=== PATIENT | male | born 1995 | race Caucasian/White ===

== ENCOUNTER 2016-07-11 16:59 | Emergency (ER) | payer OTHER ==
[2016-07-11 17:14] VITALS: TEMP 98.9
[2016-07-11] MEDS ORDERED: ASPIRIN 81 MG CHEW PO STA (17:56)
[2016-07-11 18:38] LABS: Basophils # (A) 0.1 k/uL (0-0.2); Basophils % (A) 1 %; CH 30.7; CHCM 33.7; Eosinophils # (A) 0.2 k/uL (0-0.7); Eosinophils % (A) 2 %; HCT 46.8 % (39.0-53.0); HDW 2.34; HGB 16.1 gm/dL (13.0-17.5); Luc # (Auto) 0.22; Luc % (Auto) 2; Lymphocytes # (A) 3.3 k/uL (1.0-4.8); Lymphocytes % (A) 31 %; MCH 31.4 pg (25.0-35.0); MCHC 34.4 g/dL (31.0-37.0); MCV 91.4 fL (80.0-100.0); Mean Platelet Volume 6.8; Monocytes # (A) 0.7 k/uL (0-1.0); Monocytes % (A) 7 %; Neutrophils % (A) 57 %; RBC 5.12 m/uL (4.30-5.90); RDW 12.9 % (11.5-15.5); WBC 10.5 k/uL (3.8-10.6); WBC (Perox) 11.32
--- NOTE | 2016-07-11 18:47 | XR ---
EXAMINATION TYPE: XR chest 2V DATE OF EXAM: 07/11/2016 6:36 PM COMPARISON: NONE HISTORY: Chest pain TECHNIQUE: Frontal and lateral views of the chest are obtained. FINDINGS: Heart and mediastinum are normal. Lungs are clear. Diaphragm is normal. Bony thorax and so ft tissues appear normal. There are chest leads. IMPRESSION: Normal chest
[2016-07-11 18:52] LABS: ALT 74 U/L (21-72); AST 47 U/L (17-59); Alkaline Phosphatase 97 U/L (38-126); Anion Gap 11 mmol/L; Blood Urea Nitrogen 13 mg/dL (9-20); Calcium 9.8 mg/dL (8.4-10.2); Carbon Dioxide 26 mmol/L (22-30); Chloride 105 mmol/L (98-107); Glucose 101 mg/dL (74-99); Magnesium 2.1 mg/dL (1.6-2.3); Non-African American GFR(MDRD) >60 (>60 ml/min/1.73 sqM); Potassium 4.5 mmol/L (3.5-5.1); Sodium 142 mmol/L (137-145); Total Bilirubin 0.6 mg/dL (0.2-1.3); Total Protein 7.8 g/dL (6.3-8.2)
--- NOTE | 2016-07-11 20:03 | ED ---
Chest Pain HPI - General Chief Complaint: Chest Pain Stated Complaint: Chest pain Time Seen by Provider: 07/11/16 17:52 Source: patient Mode of arrival: wheelchair Limitations: no limitations - History of Present Illness Initial Comments: Patient complains of chest pain. Pain is in the middle of the chest. He describes this pressure. Nothing makes the pain better or worse. The pain doesn't radiate anywhere. He was not doing when the pain began. He has no nausea, vomiting, diaphoresis. He has no belly or back pain. He has no weakness. He has no trouble walking. His pain has been there for many hours. There are no exacerbating or relieving factors. He has no exertional chest pain. He has no neck pain or stiffness. - Related Data Home Medications Medication Instructions Recorded Confirmed Dextroamphetamine/Amphetamine 20 mg PO BID 07/11/16 07/11/16 [Adderall] Previous Rx's Medication Instructions Recorded Ibuprofen [Motrin] 800 mg PO Q8HR PRN #30 tab 11/22/14 Allergies Allergy/AdvReac Type Severity Reaction Status Date / Time No Known Allergies Allergy Verified 07/11/16 18:05 Review of Systems ROS Statement: Those systems with pertinent positive or pertinent negative responses have been documented in the HPI. ROS Other: All systems not noted in ROS Statement are negative. EKG Findings - EKG Comments: EKG Findings:: Twelve-lead EKG is obtained, interpreted by me as showing ventricular rate 95 bpm, normal SD interval and QRS complexes, no ST elevation or depression, interpreted by me as normal sinus rhythm. Past Medical History Past Medical History: No Reported History History of Any Multi-Drug Resistant Organisms: MRSA Date of last positivie culture/infection: 2014 MDRO Source:: FACE Past Surgical History: Orthopedic Surgery Past Psychological History: ADD/ADHD Smoking Status: Current every day smoker Past Alcohol Use History: Occasional Past Drug Use History: None Reported General Exam Limitations: no limitations General appearance: alert, in no apparent distress Head exam: Present: atraumatic, normocephalic, normal inspection Eye exam: Present: normal appearance, PERRL, EOMI. Absent: scleral icterus, conjunctival injection, periorbital swelling ENT exam: Present: normal exam, mucous membranes moist Neck exam: Present: normal inspection. Absent: tenderness, meningismus, lymphadenopathy Respiratory exam: Present: normal lung sounds bilaterally. Absent: respiratory distress, wheezes, rales, rhonchi, stridor Cardiovascular Exam: Present: regular rate, normal rhythm, normal heart sounds. Absent: systolic murmur, diastolic murmur, rubs, gallop, clicks GI/Abdominal exam: Present: soft, normal bowel sounds. Absent: distended, tenderness, guarding, rebound, rigid Extremities exam: Present: normal inspection, full ROM, normal capillary refill. Absent: tenderness, pedal edema, joint swelling, calf tenderness Back exam: Present: normal inspection Neurological exam: Present: alert, oriented X3, CN II-XII intact Psychiatric exam: Present: normal affect, normal mood Skin exam: Present: warm, dry, intact, normal color. Absent: rash Course Vital Signs 07/11/16 07/11/16 07/11/16 17:11 18:02 18:57 Temperature 98.9 F Pulse Rate 94 108 H 83 Respiratory 18 18 20 Rate Blood Pressure 142/82 129/64 116/59 O2 Sat by Pulse 98 99 98 Oximetry Chest [facility] Patient complains of chest pain. His EKG is normal. His exam is unremarkable. Two-view chest x-ray is normal. Laboratory studies are all normal. Troponin is negative. Patient is reevaluated. He has no risk factors for pulmonary embolism. There is no evidence of any emergency condition. At this time he is stable for discharge and outpatient follow-up. Disposition Clinical Impression: Chest pain Disposition: HOME SELF-CARE Condition: Good Instructions: Chest Pain (ED) Time of Disposition: 20:03
[2016-07-11 20:37] VITALS: BP 130/67; PULSE 77; RESP 16
== END 2016-07-11 20:37 | disposition home or self-care (01) ==
LOC: EC 16:59
DX: R07.9 Chest pain, unspecified (principal); F17.200 Nicotine dependence, unspecified, uncomplicated; F90.9 Attention-deficit hyperactivity disorder, unspecified type; Z79.899 Other long term (current) drug therapy
CPT/HCPCS: 36415; 71020; 80053; 83735; 83880; 84484; 85025; 93005; 99285

== ENCOUNTER → 2019-05-05 | Outpatient (CLI) | payer BC ==
[2019-05-05 10:00] LABS: Basophils # (A) 0.2 k/uL (0-0.2); Basophils % (A) 1 %; Eosinophils # (A) 0.3 k/uL (0-0.7); Eosinophils % (A) 2 %; HCT 50.4 % (39.0-53.0); Lymphocytes # (A) 3.3 k/uL (1.0-4.8); Lymphocytes % (A) 28 %; MCHC 31.7 g/dL (31.0-37.0); MCV 91.5 fL (80.0-100.0); Mean Platelet Volume 7.1; Monocytes # (A) 0.6 k/uL (0-1.0); Monocytes % (A) 6 %; Neutrophils # (A) 7.1 k/uL (1.3-7.7); Neutrophils % (A) 60 %; Platelet Count 325 k/uL (150-450); RBC 5.51 m/uL (4.30-5.90); RDW 12.4 % (11.5-15.5); WBC 11.7 k/uL (3.8-10.6)
[2019-05-05 11:41] LABS: Erythrocyte Sedimentation Rate 21 mm/hr (0-15)
[2019-05-05 16:15] LABS: African American GFR (CKD) 107.6 (60.0-200.0); Albumin 4.5 g/dL (3.80-4.90); Albumin/Globulin Ratio 2.05 (1.60-3.17); Anion Gap 5.2 mmol/L (4.00-12.00); BUN/Creat Ratio 12.73 Ratio (12.00-20.00); Calcium 9.2 mg/dL (8.7-10.3); Carbon Dioxide 29.8 mmol/L (21.6-31.8); Globulin 2.2 g/dL (1.6-3.3); LDL Cholesterol,Calculated 117.2 mg/dL (0.0-131.0); Non-African American GFR(CKD) 92.8 (60.0-200.0); Potassium 4.4 mmol/L (3.5-5.5); Total Bilirubin 0.4 mg/dL (0.3-1.2); Total Protein 6.7 g/dL (6.2-8.2); VLDL Calculation 34.8 mg/dL (5.00-40.00)
[2019-05-05 16:48] LABS: Hemoglobin A1C 6.3 % (4.0-6.0)
== END | disposition home or self-care (01) ==
LOC: LABWHC1 09:42
PROVIDERS: ATTEND Family Medicine
DX: Z00.00 Encounter for general adult medical examination without abnormal findings (principal); I10 Essential (primary) hypertension
CPT/HCPCS: 36415; 80053; 80061; 82306; 83036; 84443; 84681; 85025; 85652; 86431

== ENCOUNTER → 2019-12-07 | Outpatient (CLI) | payer BC ==
--- NOTE | 2019-12-08 09:35 | XR ---
EXAMINATION TYPE: XR scoliosis survey DATE OF EXAM: 12/07/2019 COMPARISON: NONE HISTORY: Scoliosis TECHNIQUE: Frontal and lateral images of the thoracic and lumbar spine obtained. FINDINGS: There is levocurvature of the thoracolumbar junction of 8 degrees. Vertebral body heights and disc sp aces are normal. No vertebral body congenital abnormalities of the visualized spine. No significant d egenerative change. No acute fracture or dislocation. IMPRESSION: 8 degrees levocurvature of the thoracolumbar junction.
== END | disposition home or self-care (01) ==
LOC: RADXRMAIN 14:20
PROVIDERS: ATTEND Family Medicine
DX: M41.85 Other forms of scoliosis, thoracolumbar region (principal)
CPT/HCPCS: 72082

== ENCOUNTER → 2019-12-10 | Outpatient (CLI) | payer BC ==
[2019-12-10 09:00] LABS: HCT 47.9 % (39.0-53.0); HGB 15.2 gm/dL (13.0-17.5); MCH 28.8 pg (25.0-35.0); MCHC 31.8 g/dL (31.0-37.0); MCV 90.8 fL (80.0-100.0); Mean Platelet Volume 6.8; Platelet Count 368 k/uL (150-450); RBC 5.27 m/uL (4.30-5.90); RDW 12.8 % (11.5-15.5); WBC 12.6 k/uL (3.8-10.6)
[2019-12-10 16:39] LABS: African American GFR (CKD) 119.9 (60.0-200.0); Albumin 4.3 g/dL (3.80-4.90); Albumin/Globulin Ratio 1.65 (1.60-3.17); Anion Gap 6.8 mmol/L (4.00-12.00); Calcium 9.7 mg/dL (8.7-10.3); Carbon Dioxide 29.2 mmol/L (21.6-31.8); Chol/HDL Ratio 5.39; Globulin 2.6 g/dL (1.6-3.3); LDL Cholesterol,Calculated 133.6 mg/dL (0.0-131.0); Non-African American GFR(CKD) 103.4 (60.0-200.0); Potassium 4.8 mmol/L (3.5-5.5); Total Bilirubin 0.5 mg/dL (0.2-1.2); Total Protein 6.9 g/dL (6.2-8.2); VLDL Calculation 33.4 mg/dL (5.00-40.00)
[2019-12-10 19:26] LABS: Hemoglobin A1C 6.2 % (4.0-6.0)
[2019-12-10 20:23] LABS: Microalbumin Creatinine Ratio <30 mg/g Creat (0-30); Urine Creatinine 130.2 mg/dL
== END | disposition home or self-care (01) ==
LOC: LABWHC1 07:42
PROVIDERS: ATTEND Family Medicine
DX: E11.9 Type 2 diabetes mellitus without complications (principal)
CPT/HCPCS: 36415; 80053; 80061; 82043; 82306; 82570; 83036; 84443; 85027

== ENCOUNTER → 2020-01-19 | Outpatient (CLI) | payer BC ==
--- NOTE | 2020-01-19 17:27 | CT ---
EXAMINATION TYPE: CT lumbar spine wo con DATE OF EXAM: 01/19/2020 COMPARISON: Plain film 12/07/2019 HISTORY: Lumbar spine pain. Previous hip injury. Hx scoliosis CT DLP: 2638.80 mGycm Automated exposure control for dose reduction was used. An unenhanced CT of the lumbar spine was performed. Bone and soft tissue window settings are submitt ed as well as coronal and sagittal reconstructions. FINDINGS: There is a slight spinal curvature. Bilateral spondylolysis present at L5. L1-L2: Normal disc space height. No disc herniation protrusion or central stenosis. No facet joint arthropathy. No evidence for foraminal encroachment. L2-L3: Normal disc space height. No disc herniation protrusion or central stenosis. No facet joint arthropathy. No evidence for foraminal encroachment. L3-L4: Normal disc space height. No disc herniation protrusion or central stenosis. No facet joint arthropathy. No evidence for foraminal encroachment. L4-L5: Normal disc space height. No disc herniation protrusion or central stenosis. No facet joint arthropathy. No evidence for foraminal encroachment. L5-S1: Normal disc space height. No disc herniation protrusion or central stenosis. No facet joint arthropathy. No evidence for foraminal encroachment. IMPRESSION: No paraspinal masses are identified. Lumbar segments are intact. Spondylolysis bilaterally L5 withou t spondylolisthesis.
== END | disposition home or self-care (01) ==
LOC: RADCTMAIN 15:54
PROVIDERS: ATTEND Family Medicine
DX: M43.06 Spondylolysis, lumbar region (principal)
CPT/HCPCS: 72131

== ENCOUNTER → 2020-05-03 | Outpatient (CLI) | payer BC ==
[2020-05-03 15:49] LABS: African American GFR (CKD) 119.9 (60.0-200.0); Anion Gap 7.2 mmol/L (4.00-12.00); Carbon Dioxide 28.8 mmol/L (21.6-31.8); Non-African American GFR(CKD) 103.4 (60.0-200.0); Potassium 4.6 mmol/L (3.5-5.5)
[2020-05-03 18:14] LABS: Hemoglobin A1C 5.8 % (4.0-6.0)
== END | disposition home or self-care (01) ==
LOC: LABWHC1 09:31
PROVIDERS: ATTEND Family Medicine
DX: E11.9 Type 2 diabetes mellitus without complications (principal); R53.82 Chronic fatigue, unspecified
CPT/HCPCS: 36415; 80051; 82565; 83036; 84520

== ENCOUNTER → 2020-11-08 | Outpatient (CLI) | payer BC ==
[2020-11-09 04:14] LABS: C-Peptide 5.67 ng/mL (0.81-3.85)
== END | disposition home or self-care (01) ==
LOC: LABWHC1 10:06
PROVIDERS: ATTEND Family Medicine
DX: Z00.00 Encounter for general adult medical examination without abnormal findings (principal); I10 Essential (primary) hypertension; E11.9 Type 2 diabetes mellitus without complications
CPT/HCPCS: 36415; 83036; 84443; 84681

== ENCOUNTER → 2021-05-25 | Outpatient (CLI) | payer BC ==
[2021-05-25 18:17] LABS: African American GFR (CKD) 139.3 (60.0-200.0); Non-African American GFR(CKD) 120.2 (60.0-200.0)
[2021-05-25 18:19] LABS: Basophils # (A) 0.04 X 10*3/uL (0.00-0.10); Basophils % (A) 0.4 %; Eosinophils # (A) 0.16 X 10*3/uL (0.04-0.35); Eosinophils % (A) 1.7 %; HCT 43.8 % (39.6-50.0); HGB 14.4 g/dL (13.0-17.0); Immature Grans, Automated 0.1 %; Lymphocytes # (A) 3.72 X 10*3/uL (0.90-5.00); Lymphocytes % (A) 39.5 %; MCH 30.4 pg (27.0-32.0); MCHC 32.9 g/dL (32.0-37.0); MCV 92.4 fL (80.0-97.0); Mean Platelet Volume 9.8 fL (9.5-12.2); Monocytes # (A) 0.76 X 10*3/uL (0.20-1.00); Monocytes % (A) 8.1 %; NRBC Per 100 WBC 0 /100 WBCS (0.0-0.0); Neutrophils # (A) 4.72 X 10*3/uL (1.80-7.70); Neutrophils % (A) 50.2 %; Platelet Count 322 X 10*3/uL (140-440); RBC 4.74 X 10*6/uL (4.40-5.60); RDW 12.6 % (11.5-14.5); WBC 9.41 X 10*3/uL (4.50-10.00)
[2021-05-25 18:30] LABS: Hepatitis B Surface AB- Quant 8.9 mIU/mL; Hepatitis B Surface Antigen Nonreactive (Nonreactive); Hepatitis C IgG Antibody Nonreactive (Nonreactive)
[2021-05-26 06:08] LABS: Hepatitis B Surface Antibody Indetermin (Nonreactive)
== END | disposition home or self-care (01) ==
LOC: LABWHC1 12:46
PROVIDERS: ATTEND Dermatology Procedural Dermatology
DX: L73.2 Hidradenitis suppurativa (principal); Z79.899 Other long term (current) drug therapy
CPT/HCPCS: 36415; 82565; 84450; 84460; 85025; 86480; 86706; 86803; 87340

== ENCOUNTER → 2022-04-23 | Outpatient (CLI) | payer SELFPAY ==
--- NOTE | 2022-04-23 17:46 | XR ---
EXAMINATION TYPE: XR Hip Complete LT DATE OF EXAM: 04/23/2022 4:59 PM INDICATION: Patient age:Male; 26 years old; Reason for study: M84.459A PATHOLOGICAL FRACTURE, HIP, UNSP, INIT EN; COMPARISON: None. TECHNIQUE: The left hip was examined in the frontal and lateral projections FINDINGS: No evidence for acute process, joint dislocation or significant soft tissue swelling. Degen eration with osteophyte formation of the left hip acetabulum and femoral head. IMPRESSION: 1. No acute process. 2. 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
== END | disposition home or self-care (01) ==
LOC: RADXRMAIN 16:44
PROVIDERS: ATTEND Family Medicine
DX: M84.459A Pathological fracture, hip, unspecified, initial encounter for fracture (principal); M16.11 Unilateral primary osteoarthritis, right hip; M21.851 Other specified acquired deformities of right thigh
CPT/HCPCS: 73502

== ENCOUNTER → 2022-05-18 | Outpatient (CLI) | payer BC ==
[2022-05-18 16:54] LABS: Basophils # (A) 0.03 X 10*3/uL (0.00-0.10); Basophils % (A) 0.3 %; Eosinophils # (A) 0.18 X 10*3/uL (0.04-0.35); Eosinophils % (A) 2.1 %; HCT 44.6 % (39.6-50.0); HGB 14.3 g/dL (13.0-17.0); Immature Grans, Automated 0.2 %; Lymphocytes # (A) 2.53 X 10*3/uL (0.90-5.00); Lymphocytes % (A) 28.9 %; MCHC 32.1 g/dL (32.0-37.0); MCV 93.7 fL (80.0-97.0); Monocytes # (A) 0.96 X 10*3/uL (0.20-1.00); NRBC Per 100 WBC 0 /100 WBCS (0.0-0.0); Neutrophils # (A) 5.02 X 10*3/uL (1.80-7.70); Neutrophils % (A) 57.5 %; Platelet Count 367 X 10*3/uL (140-440); RBC 4.76 X 10*6/uL (4.40-5.60); RDW 13.3 % (11.5-14.5); WBC 8.74 X 10*3/uL (4.50-10.00)
[2022-05-18 17:23] LABS: Erythrocyte Sedimentation Rate 54 mm/Hr (0-15)
[2022-05-18 17:35] LABS: ALT 36 U/L (10-49); AST 29 U/L (14-35); African American GFR (CKD) 134.2 (60.0-200.0); Albumin 4.2 g/dL (3.8-4.9); Alkaline Phosphatase 94 U/L (41-126); BUN/Creat Ratio 11.11 Ratio (12.00-20.00); Calcium 9.3 mg/dL (8.7-10.3); Carbon Dioxide 28.1 mmol/L (20.0-27.5); Chloride 102 mmol/L (96-109); Chol/HDL Ratio 5.99 Ratio; Glucose 85 mg/dL (70-110); LDL Cholesterol,Calculated 126.6 mg/dL (0.0-131.0); Non-African American GFR(CKD) 115.8 (60.0-200.0); Potassium 4.8 mmol/L (3.5-5.5); Sodium 138 mmol/L (135-145); Total Protein 7.2 g/dL (6.2-8.2)
== END | disposition home or self-care (01) ==
LOC: LABWHC1 11:19
PROVIDERS: ATTEND Family Medicine
DX: I10 Essential (primary) hypertension (principal); N39.0 Urinary tract infection, site not specified; Z79.899 Other long term (current) drug therapy
CPT/HCPCS: 36415; 80053; 80061; 82306; 83036; 84443; 85025; 85652